=== PATIENT | female | born 2005 | race Two or more races ===

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

== ENCOUNTER 2024-09-25 10:37 | Outpatient (CLI) | payer OTHER | END 2024-09-25 10:47 | disposition home or self-care (01) | LOC: MRI 10:37 | DX: M25.562 Pain in left knee (principal); M23.2 Derangement of meniscus due to old tear or injury; M25.462 Effusion, left knee | CPT/HCPCS: 73721 ==